=== PATIENT | male | born 1985 | race Caucasian/White ===

== ENCOUNTER 2017-01-17 12:33 | Emergency (ER) | payer MEDICAID ==
[2017-01-17] MEDS ORDERED: Sodium Chloride 0.9% 1,000 ML IV ONE (12:43)
[2017-01-17 13:24] VITALS: BP 119/80
[2017-01-17 13:37] LABS: CHLORIDE,CL 105 mmol/L (98-107); SODIUM,NA 140 mmol/L (136-145)
--- NOTE | 2017-01-18 08:25 | ER ---
Date of Service: 01/17/2017 SUBJECTIVE: Jun presents to the emergency room following a syncopal episode. The patient was picking up some prescriptions at [facility] following an incision and drainage of the hemorrhoid at [facility]. This was done under local anesthetic and he states that it was quite painful. The patient states that while he was standing in line, he became lightheaded and subsequently had a syncopal episode. It is unknown how long the patient was unresponsive. EMS was summoned. On their arrival, the patient was alert, oriented, and answered all questions appropriately and was speaking without difficulty. The patient states that he did not experience any chest pain or shortness of breath prior to this event. PAST MEDICAL HISTORY: 1. Hemorrhoids. 2. Anxiety. 3. Depression. MEDICATIONS: 1. Celexa 20 mg daily. 2. Tylenol No. 3 one p.o. as directed for pain after the hemorrhoid procedure. ALLERGIES: NKDA. REVIEW OF SYSTEMS: General: No fever or chills. HEENT: No sore throat, rhinorrhea, or congestion. Respiratory: No shortness breath. Cardiac: Denies any substernal chest pain. GI/: Please see history of present illness. He does complain of rectal pain and bleeding. Denies any abdominal discomfort, nausea, vomiting, or diarrhea. PHYSICAL EXAMINATION: General: This is a 31-year-old male patient who is in no acute distress. Vital Signs: Blood pressure is 114/69, temperature is 35.8, pulse rate is 66, respiratory rate is 16, O2 saturations 96%. Skin: Warm, pink, and dry. HEENT: Mouth, oral mucosa is moist. Lungs: Clear to auscultation. Heart: Regular rate and rhythm. Abdomen: Soft, nontender. There is no hepatosplenomegaly or masses noted. Extremities: Without edema. DIAGNOSTIC DATA: EKG was obtained showing a sinus rhythm without any acute ST or T-wave abnormalities. LABORATORY DATA: WBC is 11.6, hemoglobin is 13.7, platelets are 264. PT is 10.8, INR is 1.0. Chemistry: Comprehensive metabolic panel was obtained with the exception of an elevated nonfasting blood glucose of 109 which was within normal limits. His troponin was negative at less than 0.017. ASSESSMENT: Syncopal episode. PLAN: The patient will be discharged. He was encouraged to drink plenty of fluids. He should take his Tylenol with Codeine 1 every 4-6 hours as needed for pain. Return to the emergency room if he develops any chest pain, shortness of breath, or other worrisome signs or symptoms. MWK: 01/18/2017 02:26:20 MODL: 01/18/2017 07:13:54 /[id number]
== END 2017-01-17 13:49 | disposition home or self-care (01) ==
LOC: VM.ED 12:33
DX: R55 Syncope and collapse (principal); F41.9 Anxiety disorder, unspecified; F32.9 Major depressive disorder, single episode, unspecified
CPT/HCPCS: 36415; 80053; 82550; 84484; 85025; 85610; 93005; 96360; 99285; J7030

== ENCOUNTER 2017-09-11 21:33 | Emergency (ER) | payer MEDICAID ==
[2017-09-11 21:41] VITALS: BP 134/83
[2017-09-11] MEDS ORDERED: Tetracaine HCl/PF 0.5% 4 ML Bottle EYERT ONE (21:51)
[2017-09-11] MEDS ORDERED: Fluorescein 1 MG Ophth Strip EYERT ONE (21:51)
--- NOTE | 2017-09-11 22:29 | EDM.PDOC ---
ED HPI GENERAL MEDICAL PROBLEM - General Chief Complaint: Eye Problems Stated Complaint: SOMETHING IN EYE Time Seen by Provider: 09/11/17 21:34 Source of Information: Reports: Patient, RN, RN Notes Reviewed History Limitations: Reports: No Limitations - History of Present Illness INITIAL COMMENTS - FREE TEXT/NARRATIVE: Patient comes into the ER with complaints of right eye pain that started suddenly about 10 am today. He states the pain is more of an irritation and rates it a 1/10 for pain. Patient denies visual changes or blurred vision. He states he has excessive tearing and clear drainage today. He denies recent welding or grinding of metal. He did buy OTC Clear Eye eye drops and placed in his right eye without relief. 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) (Clear Eyes eye drops OTC) - Related Data Allergies Allergy/AdvReac Type Severity Reaction Status Date / Time No Known Allergies Allergy Verified 09/11/17 21:38 Home Meds: Home Meds Citalopram [Celexa] 20 mg PO DAILY 01/17/17 [History] Neomycin/Polymyxin B Sulf/HC [Llofslos-Lfcp-XP Eye Drops] 2 drop EYERT QID 7 Days #1 bottle 09/11/17 [Rx] Past Medical History - Past Health History Medical/Surgical History: Denies Medical/Surgical History Psychiatric History: Reports: Depression - Past Surgical History HEENT Surgical History: Reports: Oral Surgery Social & Family History - Tobacco Use Smoking Status *Q: Former Smoker Years of Tobacco use: 8 Used Tobacco, but Quit: Yes Month/Year Tobacco Last Used: 2013 - Alcohol Use Days Per Week of Alcohol Use: 0 - Recreational Drug Use Recreational Drug Use: No ED ROS GENERAL - Review of Systems Review Of Systems: See Below Constitutional: Reports: No Symptoms HEENT: Reports: Eye Discharge, Eye Pain. Denies: Vision Change Respiratory: Reports: No Symptoms. Denies: Shortness of Breath Cardiovascular: Reports: No Symptoms. Denies: Chest Pain ED EXAM GENERAL W FULL EYE - Physical Exam Exam: See Below Exam Limited By: No Limitations General Appearance: Alert, No Apparent Distress Eye Exam: Right Eye: Corneal Abrasion, Foreign Body, Bilateral Eye: EOMI, PERRL Visual Acuity (R) 20/: 30 Visual Acuity (L) 20/: 30 With Correction: Yes Eyelids: Bilateral: Normal Appearance Conjunctiva & Sclera: Right: Injected Cornea Exam: Right: Foreign Body, Examined with Flourescein Pupils: Normal Accommodation Pupillary Size: Right: 3 mm Pupillary Reaction: Bilateral: Brisk Respiratory/Chest: No Respiratory Distress, Lungs Clear, Normal Breath Sounds, No Accessory Muscle Use, Chest Non-Tender Cardiovascular: Normal Peripheral Pulses, Regular Rate, Rhythm, No Edema, No Gallop, No JVD, No Murmur, No Rub ED EYE w/ Add Procedure - Eye Procedure Alcaine Drops Administered: Yes Eye FB Removal: Removal w/ Needle Eye Irrigated w/ Saline (ccs): 3 Progress: Foreign body noted at the 5 oclock position on the cornea. Tetracaine eye drops applied to right eye. Removed foreign body with needle. Patient tolerated procedure well. No complications. Course - Vital Signs Last Recorded V/S: Last Vital Signs Temp 36.6 C 09/11/17 21:39 Pulse 94 09/11/17 21:39 Resp 16 09/11/17 21:39 BP 134/83 09/11/17 21:39 Pulse Ox 96 09/11/17 21:39 - Orders/Labs/Meds Meds: Medications Discontinued Medications Generic Name Dose Route Start Last Admin Trade Name Freq PRN Reason Stop Dose Admin Fluorescein Sodium 1 mg 09/11/17 21:51 09/11/17 21:56 Ful-Mirella EYERT 09/11/17 21:52 1 mg ONETIME ONE Administration Tetracaine HCl 1 ml 09/11/17 21:51 09/11/17 21:56 Tetracaine 0.5% Steri-Unit Edith EYERT 09/11/17 21:52 2 drop ONETIME ONE Administration Departure - Departure Time of Disposition: 22:34 Disposition: Home, Self-Care 01 Condition: Good Clinical Impression: Corneal abrasion Qualifiers: Encounter type: initial encounter Laterality: right Qualified Code(s): S05.01XA - Injury of conjunctiva and corneal abrasion without foreign body, right eye, initial encounter Foreign body, eye Qualifiers: Encounter type: initial encounter Laterality: right Qualified Code(s): T15.91XA - Foreign body on external eye, part unspecified, right eye, initial encounter - Discharge Information Prescriptions: Neomycin/Polymyxin B Sulf/HC [Ffijixfn-Rdcj-FR Eye Drops] 2 drop EYERT QID 7 Days #1 bottle Instructions: Eye Foreign Body, Kumz-bm-Rejn, Corneal Abrasion Additional Instructions: Stay well hydrated and rest. Antibiotic eye drops, place 2 drops in the right eye four times a day for 7 days. Follow up with your eye care provider as needed. Call if any questions or concerns.
== END 2017-09-11 22:52 | disposition home or self-care (01) ==
LOC: VM.ED 21:33
DX: T15.91XA Foreign body on external eye, part unspecified, right eye, initial encounter (principal); Z79.899 Other long term (current) drug therapy; Z87.891 Personal history of nicotine dependence
CPT/HCPCS: 65220; 99283; A9270

== ENCOUNTER 2019-05-18 16:40 | Emergency (ER) | payer MEDICAID ==
[2019-05-18 17:18] VITALS: BP 144/90; PULSE 104
--- NOTE | 2019-05-18 17:29 | CR ---
[id number] RAD/RAD Hand Right 3V Exam: RAD Hand Right 3V Indication:ATTN 2ND MCP JOINT,POSSIBLE TRAUMA YESTERDAY. Comparison: No prior imaging for comparison. Discussion: No fracture or dislocation. No AVN or erosive changes. Joint spaces are well-preserved. Impression: No acute findings. Clinton Puckett MD 05/18/19 [id number] Thank you for allowing us to participate in the care of your patient.
[2019-05-18] MEDS: ceFAZolin 1 GM Vial IM ONE (18:05)
[2019-05-18] MEDS: Take Home: Cephalexin 500 MG Cap, 4 Cap Pack PO ONE (18:05)
--- NOTE | 2019-05-19 04:40 | EDM.PDOC ---
ED HPI GENERAL MEDICAL PROBLEM - General Chief Complaint: Upper Extremity Injury/Pain Stated Complaint: hand swollen Time Seen by Provider: 05/18/19 16:55 Source of Information: Reports: Patient History Limitations: Reports: No Limitations - History of Present Illness INITIAL COMMENTS - FREE TEXT/NARRATIVE: Pt. states that he was working on a vehicle yesterday and thinks he sustained an injury to the R hand. He thinks he may have hit it on some mechanical part of the care. He noticed erythema to his R hand the next AM. Denies any fever or chills. He states that the erythema is increasing in size. Pt. denies any erythema or skin discoloration elsewhere. Onset Date: 05/18/19 Location: Reports: Upper Extremity, Right Quality: Reports: Burning Associated Symptoms: Reports: Rash. Denies: Fever/Chills, Malaise, Nausea/ Vomiting, Weakness Right Finger-Index Pain Score (Numeric/FACES): 7 - Related Data Allergies Allergy/AdvReac Type Severity Reaction Status Date / Time No Known Allergies Allergy Verified 05/18/19 17:07 Home Meds: Home Meds . [No Known Home Meds] 05/18/19 [History] Past Medical History - Past Health History Medical/Surgical History: Denies Medical/Surgical History Psychiatric History: Reports: Depression - Past Surgical History HEENT Surgical History: Reports: Oral Surgery Musculoskeletal Surgical History: Reports: Other (See Below) Other Musculoskeletal Surgeries/Procedures:: rods/pins to R lower leg Social & Family History - Tobacco Use Smoking Status *Q: Current Some Day Smoker Years of Tobacco use: 12 Packs/Tins Daily: 0.1 - Recreational Drug Use Recreational Drug Use: No Review of Systems - Review of Systems Review Of Systems: See Below Constitutional: Reports: No Symptoms Eyes: Reports: No Symptoms Ears: Reports: No Symptoms Nose: Reports: No Symptoms Mouth/Throat: Reports: No Symptoms Respiratory: Reports: No Symptoms Cardiovascular: Reports: No Symptoms GI/Abdominal: Reports: No Symptoms Genitourinary: Reports: No Symptoms Musculoskeletal: Reports: Other (erythema to dorsum of R hand) Skin: Reports: Erythema Neurological: Reports: No Symptoms Psychiatric: Reports: No Symptoms ED EXAM, GENERAL - Physical Exam Exam: See Below Exam Limited By: No Limitations General Appearance: Alert, WD/WN, No Apparent Distress Extremities: Normal Range of Motion, Normal Capillary Refill, Other (erythema to index finger of R hand, as well as to dorsum of the R hand. No open areas. ) Course - Vital Signs Last Recorded V/S: Last Vital Signs Temp 37.6 C 05/18/19 16:55 Pulse 104 H 05/18/19 16:55 Resp 16 05/18/19 16:55 BP 144/90 H 05/18/19 16:55 Pulse Ox 98 05/18/19 16:55 - Orders/Labs/Meds Meds: Medications Discontinued Medications Generic Name Dose Route Start Last Admin Trade Name Yoko PRN Reason Stop Dose Admin Cefazolin Sodium 1 gm 05/18/19 17:48 05/18/19 18:05 Ancef IM 05/18/19 17:49 1 gm ONETIME ONE Administration Cephalexin 1 packet 05/18/19 17:51 05/18/19 18:05 Take Home: Cephalexin 500 Mg, 4 Cap Pack PO 05/18/19 17:52 1 packet ONETIME ONE Administration - Radiology Interpretation Free Text/Narrative:: radiographs of the pt. hand did not reveal any acute pathology Departure - Departure Time of Disposition: 18:15 Disposition: Home, Self-Care 01 Clinical Impression: Cellulitis - Discharge Information Instructions: Cellulitis, Adult, Ibuprofen tablets and capsules, Cephalexin tablets or capsules, Probiotics Referrals: Emily eRy DO [Primary Care Provider] - Forms: ED Department Discharge Additional Instructions: Keflex 500mg 1 tab 4 times daily for 10 days Ibuprofen 200mg 3 tabs every 6 hours as needed for pain Recheck in clinic in 7-10 days Sepsis Event Note - Evaluation Sepsis Screening Result: No Definite Risk - Focused Exam Vital Signs: Vital Signs Temp Pulse Resp BP Pulse Ox 05/18/19 16:55 37.6 C 104 H 16 144/90 H 98 Date Exam was Performed: 05/19/19 Time Exam was Performed: 04:35 - Assessment/Plan Plan: Keflex 500mg 1 tab 4 times daily for 10 days Ibuprofen 200mg 3 tabs every 6 hours as needed for pain Recheck in clinic in 7-10 days
== END 2019-05-18 16:55 | disposition home or self-care (01) ==
LOC: VM.ED 16:40
DX: L03.113 Cellulitis of right upper limb (principal); F17.210 Nicotine dependence, cigarettes, uncomplicated
CPT/HCPCS: 73130-RT; 96372; 99283-25; A9270-GY; J0690

== ENCOUNTER 2022-03-23 16:45 | Emergency (ER) | payer MEDICAID ==
[2022-03-23] MEDS ORDERED: Ibuprofen 200 MG Tab PO PRN (18:03)
[2022-03-23 19:18] VITALS: BP 142/88; PULSE 109
== END 2022-03-23 18:44 | disposition home or self-care (01) ==
LOC: VM.ED 16:45
DX: S93.401A Sprain of unspecified ligament of right ankle, initial encounter (principal); X50.1XXA Overexertion from prolonged static or awkward postures, initial encounter; Y93.01 Activity, walking, marching and hiking
CPT/HCPCS: 99283; A9270-GY

== ENCOUNTER 2022-09-23 15:04 | Emergency (ER) | payer MEDICAID ==
[2022-09-23] MEDS ORDERED: Ciprofloxacin 0.3% Ophth Soln 2.5 ML Bottle EYERT ONE (15:23)
[2022-09-23] MEDS ORDERED: Take Home: Amoxicillin 875 MG Tab, 2 Tab Pack PO ONE (15:24)
[2022-09-23 17:00] VITALS: BP 145/88; PULSE 82
== END 2022-09-23 16:14 | disposition home or self-care (01) ==
LOC: VM.ED 15:04
DX: H66.91 Otitis media, unspecified, right ear (principal); H72.91 Unspecified perforation of tympanic membrane, right ear
CPT/HCPCS: 99282; 99283; A9270-GY

== ENCOUNTER 2023-05-23 17:51 | Emergency (ER) | payer SELFPAY ==
[2023-05-23 18:06] VITALS: BP 145/94; PULSE 84
[2023-05-23 18:25] LABS: BASOPHILS ABSOLUTE AUTO 0.1 x10^3/uL (0.0-0.2); BASOPHILS PERCENT AUTO 0.7 % (0.2-1.2); EOSINOPHILS ABSOLUTE AUTO 0.9 x10^3/uL (0.0-0.5); HEMATOCRIT 41.4 % (40.0-52.0); HEMOGLOBIN 14.6 g/dL (14.0-18.0); IMMATURE GRAN ABSOLUTE AUTO 0.02 x10^3/uL (0.00-0.07); LYMPHOCYTES ABSOLUTE AUTO 3.8 x10^3/uL (1.0-4.8); LYMPHOCYTES PERCENT AUTO 35.1 % (25.0-50.0); MEAN CORPUSCULAR HEMOGLOBIN 31.1 pg (26.0-32.0); MEAN CORPUSCULAR HGB CONC 35.3 g/dL (32.0-36.0); MEAN CORPUSCULAR VOLUME 88.3 fL (78.0-93.0); MONOCYTES ABSOLUTE AUTO 0.6 x10^3/uL (0.0-0.8); MONOCYTES PERCENT AUTO 5.6 % (2.0-11.0); NEUTROPHILS ABSOLUTE AUTO 5.4 x10^3/uL (1.8-7.7); NEUTROPHILS PERCENT AUTO 50.4 % (50.0-80.0); PLATELET COUNT,PLT 302 x10^3/uL (130-400); RED BLOOD CELL COUNT 4.69 x10^6/uL (4.5-6.0); WHITE BLOOD CELL COUNT,WBC 10.7 x10^3/uL (4.0-10.0)
[2023-05-23 18:42] LABS: A/G RATIO 1.09; ALANINE AMINOTRANSFERASE,ALT 35 U/L (16-63); ALBUMIN 3.8 g/dL (3.4-5.0); ALKALINE PHOSPHATASE 69 U/L (46-116); ASPARTATE AMNIOTRANSFERASE,AST 15 U/L (15-37); BILIRUBIN TOTAL 0.2 mg/dL (0.2-1.0); BLOOD UREA NITROGEN,BUN 17 mg/dL (7-18); CALCIUM 9.2 mg/dL (8.5-10.1); CARBON DIOXIDE,CO2 29 mmol/L (21-32); CHLORIDE,CL 102 mmol/L (98-107); CREATININE 1.1 mg/dL (0.70-1.30); ESTIMATED GFR 90 mL/min (>=60); GLUCOSE RANDOM 103 mg/dL (70-99); PROTEIN TOTAL,TP 7.3 g/dL (6.4-8.2); SODIUM,NA 141 mmol/L (136-145)
[2023-05-23 19:02] LABS: CORONAVIRUS COVID-19 NAA NEGATIVE (NEGATIVE); INFLUENZA A NAA NEGATIVE (NEGATIVE); INFLUENZA B NAA NEGATIVE (NEGATIVE); RESPIRATORY SYNCYTIAL VIR NAA NEGATIVE (NEGATIVE)
== END 2023-05-23 19:40 | disposition home or self-care (01) ==
LOC: VM.ED 17:51
DX: R22.2 Localized swelling, mass and lump, trunk (principal); Z20.822 Contact with and (suspected) exposure to COVID-19
CPT/HCPCS: 0241U; 36415; 80053; 85025; 99283; 99284